=== PATIENT | male | born 1990 | race Caucasian/White ===

== ENCOUNTER → 2017-03-28 | Outpatient (CLI) | payer OTHER ==
--- NOTE | 2017-03-28 11:25 | DIAGNOSTIC IMAGING REPORT ---
RIGHT ANKLE MRI HISTORY: PAIN IN RT ANKLE AND JOINTS OF RT FOOT Right TECHNIQUE: Multiplanar multisequence MRI of the right ankle was performed without the use of intravenous contrast COMPARISON STUDY: None. FINDINGS: Within the lateral tibial plafond there is a 1.4 x 1.4 cm focal area of multiloculated subchondral cystic change. There is a rim of surrounding edema. This favors an osteochondral defect. There is thinning within the overlying cartilage. This is considered to be a stable lesion at this time. The talar dome is intact. No acute fracture or dislocation. The medial and lateral stabilizing ligaments appear intact. The plantar fascia and Achilles tendon are within normal limits. No joint effusion. The flexor, extensor, and peroneal tendons are normal and course, caliber, and signal intensity. IMPRESSION: A 1.4 x 1.4 cm focal multiloculated subchondral cystic focus at the lateral tibial plafond with a surrounding rim of edema. This favors a stable osteochondral defect. There is thinning of the overlying cartilage. Electronically signed by: Donal Rueda M.D. 03/28/2017 11:23 AM Dictated Date/Time: 03/28/2017 10:45 AM
== END | disposition home or self-care (01) ==
LOC: C.MRI 09:45
PROVIDERS: ATTEND Family Medicine Sports Medicine
DX: M25.571 Pain in right ankle and joints of right foot (principal); R93.7 Abnormal findings on diagnostic imaging of other parts of musculoskeletal system

== ENCOUNTER → 2017-04-18 | Outpatient (CLI) | payer OTHER | END | disposition home or self-care (01) | LOC: C.RDSM 11:30 | PROVIDERS: ATTEND Physical Medicine & Rehabilitation Sports Medicine | DX: M95.8 Other specified acquired deformities of musculoskeletal system (principal) ==